=== PATIENT | male | born 1945 | race Caucasian/White ===

== ENCOUNTER 2017-10-28 12:18 | Emergency (ER) | payer OTHER ==
[2017-10-28 12:20] VITALS: BP 188/90; PULSE 63; RESP 12; TEMP 97.6; O2SAT 97
[2017-10-28 13:16] LABS: AUTOMATED NEUTROPHIL # 5.3 TH/MM3 (1.8-7.7); BASOPHIL % 0.4 % (0.0-2.0); EOSINOPHIL # 0.1 TH/MM3 (0-0.4); EOSINOPHIL % 1.1 % (0.0-4.0); HEMATOCRIT 37.8 % (39.0-51.0); HEMO FLAGS DIFF FINAL; LYMPH % 20.7 % (9.0-44.0); LYMPHOCYTE # 1.5 TH/MM3 (1.0-4.8); MEAN CORPUSCULAR HEMOGLOBIN 29.7 PG (27.0-34.0); MEAN CORPUSCULAR HGB CONC 34.1 % (32.0-36.0); MONO % 5.7 % (0.0-8.0); NEUT % 72.1 % (16.0-70.0); PLATELET COUNT 318 TH/MM3 (150-450); RED BLOOD COUNT 4.34 MIL/MM3 (4.50-5.90); RED CELL DISTRIBUTION WIDTH 12.7 % (11.6-17.2); WHITE BLOOD COUNT 7.4 TH/MM3 (4.0-11.0)
[2017-10-28 13:22] LABS: APTT (PATIENT) 26.6 SEC (24.3-30.1); PROTHROMBIN TIME - PATIENT 10.5 SEC (9.8-11.6)
--- NOTE | 2017-10-28 13:26 | PD ---
HPI Chief Complaint: Complaint Time Seen by Provider: 13:03 Travel History International Travel<30 days: No Contact w/Intl Traveler<30days: No Traveled to known affect area: No History of Present Illness HPI Patient is a 72-year-old male who presents to emergency room with complaints of hematuria. Patient reports that he has history of BPH, reports that he is unable to fully empty his bladder. Patient did go to the [place] today and a Rdz catheter was placed this morning. Patient reports that when he went home he noticed blood-tinged urine. Patient reports that he had to see his Rdz catheter bag multiple times due to the blood-tinged urine. Reports that he currently is not on any anticoagulants. Patient denies any abdominal pain, denies any nausea or vomiting or diarrhea. Patient concerned as he has never had hematuria in the past. Patient does follow-up with the urologist and does have an appointment next week with his urologist. PFSH Past Medical History Arthritis: Yes Autoimmune Disease: No Blood Disorders: No Cancer: No Cardiovascular Problems: No Genitourinary: No Neurologic: No Psychiatric: No Respiratory: No Past Surgical History Abdominal Surgery: No Cardiac Surgery: No Ear Surgery: No Endocrine Surgery: No Eye Surgery: No Genitourinary Surgery: No Gynecologic Surgery: No Oral Surgery: No Pacemaker: No Thoracic Surgery: No Social History Alcohol Use: No Tobacco Use: Yes Substance Use: No Allergies-Medications (Allergen,Severity, Reaction): Coded Allergies: No Known Allergies (Verified Allergy, Unknown, 10/28/17) Reported Meds & Prescriptions Reported Meds & Active Scripts Active Macrobid (Nitrofurantoin Monoh/Nitrofur Macro) 100 Mg Cap 100 Mg PO BID 10 Days Reported Lantus Inj (Insulin Glargine) 1,000 Unit/10 Ml Vial 17 Units SQ HS Lantus Inj (Insulin Glargine) 1,000 Unit/10 Ml Vial 5 Units SQ DAILYAC Novolog Flexpen Inj (Insulin Aspart) 300 Unit/3 Ml Pen 5 Units SQ TIDAC Review of Systems General / Constitutional: No: Fever Eyes: No: Visual changes HENT: No: Headaches Cardiovascular: No: Chest Pain or Discomfort Respiratory: No: Shortness of Breath Gastrointestinal: No: Nausea, Vomiting, Diarrhea, Abdominal Pain Genitourinary: Positive: Hematuria, No: Urgency, Frequency, Dysuria Musculoskeletal: No: Pain Skin: No Rash Neurologic: No: Weakness Psychiatric: No: Depression Endocrine: No: Polydipsia Hematologic/Lymphatic: No: Easy Bruising Physical Exam Narrative GENERAL: NAD SKIN: Focused skin assessment warm/dry. HEAD: Atraumatic. Normocephalic. EYES: Pupils equal and round. No scleral icterus. No injection or drainage. ENT: No nasal bleeding or discharge. Mucous membranes pink and moist. NECK: Trachea midline. No JVD. CARDIOVASCULAR: Regular rate and rhythm. No murmur appreciated. RESPIRATORY: No accessory muscle use. Clear to auscultation. Breath sounds equal bilaterally. GASTROINTESTINAL: Abdomen soft, non-tender, nondistended. Hepatic and splenic margins not palpable. LEG bag with blood tinged urine with a few clots MUSCULOSKELETAL: No obvious deformities. No clubbing. No cyanosis. No edema. NEUROLOGICAL: Awake and alert. No obvious cranial nerve deficits. Motor grossly within normal limits. Normal speech. PSYCHIATRIC: Appropriate mood and affect; insight and judgment normal. Data Data Last Documented VS Vital Signs Date Time Temp Pulse Resp B/P (MAP) Pulse Ox O2 Delivery O2 Flow Rate FiO2 10/28/17 12:20 97.6 63 12 188/90 (122) 97 Orders Orders Urinalysis - C+S If Indicated (10/28/17 12:36) Complete Blood Count With Diff (10/28/17 12:45) Basic Metabolic Panel (Bmp) (10/28/17 12:45) Act Partial Throm Time (Ptt) (10/28/17 12:45) Prothrombin Time / Inr (Pt) (10/28/17 12:45) Bladder/Catheter Irrigation (10/28/17 13:14) Urine Culture (10/28/17 12:45) Ceftriaxone Inj (Rocephin Inj) (10/28/17 14:30) Ed Discharge Order (10/28/17 15:03) Lidocaine 1% Inj (50 Ml) (Xylocaine 1% I (10/28/17 15:15) Ceftriaxone Inj (Rocephin Inj) (10/28/17 15:15) Labs Laboratory Tests Test 10/28/17 12:45 10/28/17 12:55 Urine Color RED Urine Turbidity HAZY Urine pH 7.0 Urine Specific [place] 1.015 Urine Protein 100 mg/dL Urine Glucose (UA) 1000 mg/dL Urine Ketones NEG mg/dL Urine Occult Blood LARGE Urine Nitrite NEG Urine Bilirubin NEG Urine Urobilinogen LESS THAN 2.0 MG/DL Urine Leukocyte Esterase TRACE Urine RBC /hpf Urine WBC 14 /hpf Urine Squamous Epithelial Cells 3 /hpf Microscopic Urinalysis Comment CATH-CULTURE IND White Blood Count 7.4 TH/MM3 Red Blood Count 4.34 MIL/MM3 Hemoglobin 12.9 GM/DL Hematocrit 37.8 % Mean Corpuscular Volume 87.0 FL Mean Corpuscular Hemoglobin 29.7 PG Mean Corpuscular Hemoglobin Concent 34.1 % Red Cell Distribution Width 12.7 % Platelet Count 318 TH/MM3 Mean Platelet Volume 8.7 FL Neutrophils (%) (Auto) 72.1 % Lymphocytes (%) (Auto) 20.7 % Monocytes (%) (Auto) 5.7 % Eosinophils (%) (Auto) 1.1 % Basophils (%) (Auto) 0.4 % Neutrophils # (Auto) 5.3 TH/MM3 Lymphocytes # (Auto) 1.5 TH/MM3 Monocytes # (Auto) 0.4 TH/MM3 Eosinophils # (Auto) 0.1 TH/MM3 Basophils # (Auto) 0.0 TH/MM3 CBC Comment DIFF FINAL Differential Comment Prothrombin Time 10.5 SEC Prothromb Time International Ratio 1.0 RATIO Activated Partial Thromboplast Time 26.6 SEC Blood Urea Nitrogen 31 MG/DL Creatinine 1.60 MG/DL Random Glucose 343 MG/DL Calcium Level 9.5 MG/DL Sodium Level 138 MEQ/L Potassium Level 5.0 MEQ/L Chloride Level 105 MEQ/L Carbon Dioxide Level 29.6 MEQ/L Anion Gap 3 MEQ/L Estimat Glomerular Filtration Rate 43 ML/MIN [facility] Medical Decision Making Medical Screen Exam Complete: Yes Emergency Medical Condition: Yes Medical Record Reviewed: Yes Interpretation(s) Vital Signs Date Time Temp Pulse Resp B/P (MAP) Pulse Ox O2 Delivery O2 Flow Rate FiO2 10/28/17 12:20 97.6 63 12 188/90 (122 97 Differential Diagnosis Cystitis, bladder cancer, anemia, electrolyte abnormality Narrative Course During the course of the patients emergency department visit, the patients history, examination, and differential diagnosis were reviewed with the patient. The patient was placed on a social secretary with oximetry and frequent blood pressure monitoring. The patients laboratory studies were reviewed and remarkable for: Laboratory Tests Test 10/28/17 12:45 10/28/17 12:55 Urine Color RED (YELLW/STRAW) Urine Turbidity HAZY (CLEAR) Urine pH 7.0 (5.0-8.5) Urine Specific [place] 1.015 (1.002-1.035) Urine Protein 100 mg/dL (NEG-TRACE) Urine Glucose (UA) 1000 mg/dL (NEG) Urine Ketones NEG mg/dL (NEG) Urine Occult Blood LARGE (NEG) Urine Nitrite NEG (NEG) Urine Bilirubin NEG (NEG) Urine Urobilinogen LESS THAN 2.0 MG/DL (LESS Urine Leukocyte Esterase TRACE (NEG) Urine RBC /hpf (0-3) Urine WBC 14 /hpf (0-5) Urine Squamous Epithelial Cells 3 /hpf (0-5) Microscopic Urinalysis Comment CATH-CULTURE IND White Blood Count 7.4 TH/MM3 (4.0-11.0) Red Blood Count 4.34 MIL/MM3 (4.50-5.90) Hemoglobin 12.9 GM/DL (13.0-17.0) Hematocrit 37.8 % (39.0-51.0) Mean Corpuscular Volume 87.0 FL (80.0-100.0) Mean Corpuscular Hemoglobin 29.7 PG (27.0-34.0) Mean Corpuscular Hemoglobin Concent 34.1 % (32.0-36.0) Red Cell Distribution Width 12.7 % (11.6-17.2) Platelet Count 318 TH/MM3 (150-450) Mean Platelet Volume 8.7 FL (7.0-11.0) Neutrophils (%) (Auto) 72.1 % (16.0-70.0) Lymphocytes (%) (Auto) 20.7 % (9.0-44.0) Monocytes (%) (Auto) 5.7 % (0.0-8.0) Eosinophils (%) (Auto) 1.1 % (0.0-4.0) Basophils (%) (Auto) 0.4 % (0.0-2.0) Neutrophils # (Auto) 5.3 TH/MM3 (1.8-7.7) Lymphocytes # (Auto) 1.5 TH/MM3 (1.0-4.8) Monocytes # (Auto) 0.4 TH/MM3 (0-0.9) Eosinophils # (Auto) 0.1 TH/MM3 (0-0.4) Basophils # (Auto) 0.0 TH/MM3 (0-0.2) CBC Comment DIFF FINAL Differential Comment Prothrombin Time 10.5 SEC (9.8-11.6) Prothromb Time International Ratio 1.0 RATIO Activated Partial Thromboplast Time 26.6 SEC (24.3-30.1) Blood Urea Nitrogen 31 MG/DL (7-18) Creatinine 1.60 MG/DL (0.60-1.30) Random Glucose 343 MG/DL (74-106) Calcium Level 9.5 MG/DL (8.5-10.1) Sodium Level 138 MEQ/L (136-145) Potassium Level 5.0 MEQ/L (3.5-5.1) Chloride Level 105 MEQ/L (98-107) Carbon Dioxide Level 29.6 MEQ/L (21.0-32.0) Anion Gap 3 MEQ/L (5-15) Estimat Glomerular Filtration Rate 43 ML/MIN (>89) Patient understands need to follow-up with urologist for his hematuria as bladder cancer is a diagnosis that will need to be considered with his hematuria. Rdz catheter was irrigated until clear HBG 12.9 Cr 1.6 glucose 343 ua positive for trace leuk esterase, 14wbc, large blood UC sent, patient was given a dose of IM rocephin for tx of uti, he will follow up with urologist and will return to ER as needed. Understands that his urologist will need to perform further workup for his hemataturia Diagnosis Primary Impression: UTI (urinary tract infection) Qualified Codes: N30.01 - Acute cystitis with hematuria Additional Impressions: Hematuria Qualified Codes: R31.9 - Hematuria, unspecified Hyperglycemia Renal insufficiency Patient Instructions: General Instructions Additional Instructions: Please provide patient with a copy of their lab work and studies at discharge* * Please follow up with your primary care doctor in 2-3 days Return to the ER if symptoms worsen or progress Return to the ER as needed Please follow-up with urologist as scheduled, please inform your urologist of your symptoms from today as you will need further workup of your symptoms Please monitor your blood sugar as it was elevated today Med/Other Pt SpecificInfo: Prescription(s) given Scripts Nitrofurantoin Monohydrate Macrocrystals (Macrobid) 100 Mg Cap 100 MG PO BID for Infection for 10 Days, #20 CAP 0 Refills Prov: Jerilyn Jacobs DO 10/28/17 Disposition: 01 DISCHARGE HOME Condition: Stable Jerilyn Jacobs DO Oct 28, 2017 13:26
[2017-10-28] MEDS ORDERED: NOVOINJ3 SQ (13:30)
[2017-10-28] MEDS ORDERED: LANTUS2P SQ ×2 (13:30)
[2017-10-28 13:34] LABS: BICARBONATE 29.6 MEQ/L (21.0-32.0)
[2017-10-28 14:06] LABS: BLOOD, URINE LARGE (NEG); GLUCOSE,URINE 1000 mg/dL (NEG); KETONE, URINE NEG (NEG); NITRITE,URINE NEG (NEG); SQUAMOUS EPITHELIAL CELL URINE 3 /hpf (0-5)
[2017-10-28 14:07] LABS: COMMENT (UR) CATH-CULTURE IND; CULTURE IF INDICATED CATH CULTURE IND; URINE COLOR RED (YELLW/STRAW)
[2017-10-28] MEDS ORDERED: cefTRIAXone INJ 1,000 MG in SODIUM CHLORIDE 0.9% INJ 100 ML IV ONE (14:30)
[2017-10-28] MEDS ORDERED: MACR100C2 PO (14:59)
[2017-10-28] MEDS ORDERED: LIDOCAINE HCL 1% 50 ML VIAL IM ONE (15:15)
[2017-10-28 16:20] VITALS: BP 165/81
== END 2017-10-28 16:25 | disposition home or self-care (01) ==
LOC: NEPD 12:18
DX: N30.01 Acute cystitis with hematuria (principal); R31.9 Hematuria, unspecified; R73.9 Hyperglycemia, unspecified; N28.9 Disorder of kidney and ureter, unspecified
CPT/HCPCS: 51700; 80048; 81001; 85025; 85610; 85730; 87086; 96372; 99284; J0696

== ENCOUNTER 2018-02-13 12:36 | Inpatient (IN) | payer OTHER, MEDICARE ==
[~2018-02-13] VITALS: Ht 165.1 cm; Wt 47.7 kg
[~2018-02-13 12:36] MED LIST: LANTUS2P SQ; MACR100C2 PO; NOVOINJ3 SQ
[2018-02-13 12:40] VITALS: BP 136/61; PULSE 89; RESP 24; TEMP 97.5; O2SAT 100
[2018-02-13] MEDS ORDERED: SODIUM CHLORIDE 0.9% FLUSH 10 ML FLUSH IVF PRN (12:45)
--- NOTE | 2018-02-13 12:46 | PD ---
HPI Chief Complaint: sob Time Seen by Provider: 12:44 Travel History International Travel<30 days: No Contact w/Intl Traveler<30days: No Traveled to known affect area: No History of Present Illness HPI Patient comes in complaining of generalized weakness, associated with nausea and vomiting, over the past 2 days denies any chest pain or headache. However the patient states that he has had these symptoms before whenever he encountered diabetic ketoacidosis. Patient also states that he has had a runny nose cough dry but without apparent fever, diarrhea, rash, headache, chest pain , back pain, abdominal pain. No known drug allergy Past medical history significant for appendectomy, right knee surgery, diabetes , arthritis. PFSH Past Medical History Arthritis: Yes Autoimmune Disease: No Blood Disorders: No Cancer: No Cardiovascular Problems: No Diabetes: Yes Diminished Hearing: No Genitourinary: No Neurologic: No Psychiatric: No Respiratory: No Past Surgical History Abdominal Surgery: No Appendectomy: Yes Cardiac Surgery: No Ear Surgery: No Endocrine Surgery: No Eye Surgery: No Genitourinary Surgery: No Gynecologic Surgery: No Oral Surgery: No Pacemaker: No Thoracic Surgery: No Social History Alcohol Use: No Tobacco Use: No Substance Use: No Allergies-Medications (Allergen,Severity, Reaction): Coded Allergies: No Known Allergies (Verified Allergy, Unknown, 02/13/18) Reported Meds & Prescriptions Reported Meds & Active Scripts Active Macrobid (Nitrofurantoin Monoh/Nitrofur Macro) 100 Mg Cap 100 Mg PO BID 10 Days Reported Lantus Inj (Insulin Glargine) 1,000 Unit/10 Ml Vial 17 Units SQ HS Lantus Inj (Insulin Glargine) 1,000 Unit/10 Ml Vial 5 Units SQ DAILYAC Novolog Flexpen Inj (Insulin Aspart) 300 Unit/3 Ml Pen 5 Units SQ TIDAC Review of Systems General / Constitutional: No: Fever Eyes: No: Visual changes HENT: No: Headaches Cardiovascular: No: Chest Pain or Discomfort Respiratory: Positive: Cough, Shortness of Breath Gastrointestinal: No: Abdominal Pain Genitourinary: No: Dysuria Musculoskeletal: No: Pain Skin: No Rash Neurologic: No: Weakness Psychiatric: No: Depression Endocrine: No: Polydipsia Hematologic/Lymphatic: No: Easy Bruising Physical Exam Narrative GENERAL: SKIN: Warm and dry. Skin tenting HEAD: Atraumatic. Normocephalic. EYES: Pupils equal and round. No scleral icterus. No injection or drainage. ENT: No nasal bleeding or discharge. Mucous membranes pink but dry NECK: Trachea midline. No JVD. CARDIOVASCULAR: Tachycardic but regular rate and rhythm. RESPIRATORY: No accessory muscle use. Clear to auscultation. Breath sounds equal bilaterally. Tachypneic GASTROINTESTINAL: Abdomen soft, non-tender, nondistended. MUSCULOSKELETAL: Extremities without clubbing, cyanosis, or edema. No obvious deformities. NEUROLOGICAL: Awake and alert. No obvious cranial nerve deficits. Motor grossly within normal limits. Five out of 5 muscle strength in the arms and legs. Normal speech. PSYCHIATRIC: Appropriate mood and affect; insight and judgment normal. Data Data Last Documented VS Vital Signs Date Time Temp Pulse Resp B/P (MAP) Pulse Ox O2 Delivery O2 Flow Rate FiO2 02/13/18 13:15 24 100 Room Air 02/13/18 12:40 97.5 89 136/61 (86) Orders Orders Complete Blood Count With Diff (02/13/18 12:44) Comprehensive Metabolic Panel (02/13/18 12:44) B-Type Natriuretic Peptide (02/13/18 12:44) Act Partial Throm Time (Ptt) (02/13/18 12:44) Prothrombin Time / Inr (Pt) (02/13/18 12:44) Ckmb (Isoenzyme) Profile (02/13/18 12:44) Troponin I (02/13/18 12:44) Urinalysis - C+S If Indicated (02/13/18 12:44) Influenzae A/B Antigen (02/13/18 12:44) Blood Culture (02/13/18 12:44) Iv Access Insert/Monitor (02/13/18 12:44) Electrocardiogram (02/13/18 12:44) Ecg Monitoring (02/13/18 12:44) Oximetry (02/13/18 12:44) Oxygen Administration (02/13/18 12:44) Chest, Single Ap (02/13/18 12:44) Sodium Chloride 0.9% Flush (Ns Flush) (02/13/18 12:45) Sodium Chlor 0.9% 1000 Ml Inj (Ns 1000 M (02/13/18 14:45) Insulin Human Regular Inj (Novolin R Inj (02/13/18 14:45) Arterial Blood Gas (Abg) (02/13/18 14:38) Diet Npo (02/13/18 Dinner) Beta Hydroxybutyrate (Acetone) (02/13/18 15:11) Sodium Chlor 0.9% 1000 Ml Inj (Ns 1000 M (02/13/18 15:11) Dext 5%-Nacl 0.9% 1000 Ml Inj (D5w-Ns 10 (02/13/18 15:11) Sodium Bicarbonate 8.4% Inj (Sodium Bica (02/13/18 15:15) Admit To Inpatient (02/13/18 ) It Disaster Recovery Manager / Telemetry GRANT.Q8H (02/13/18 15:25) ^ Insert Iv (02/13/18 15:25) ^ Teach Patient (02/13/18 15:25) Bedside Glucose GRANT.Q1H (02/13/18 15:25) Sodium Chlor 0.9% 1000 Ml Inj (Ns 1000 M (02/13/18 15:25) Dext 5%-Nacl 0.9% 1000 Ml Inj (D5w-Ns 10 (02/13/18 15:25) Insulin Regular (Iv Infusion) (Novolin R (02/13/18 15:30) Potassium Chlor 40 Meq Premix (Kcl 40 Me (02/13/18 15:30) Potassium Chlor 40 Meq Premix (Kcl 40 Me (02/13/18 15:30) Potassium Chlor 20 Meq Premix (Kcl 20 Me (02/13/18 15:30) Potassium Chlor 20 Meq Premix (Kcl 20 Me (02/13/18 15:30) Potassium Chlor 20 Meq Premix (Kcl 20 Me (02/13/18 15:30) Potassium Chlor 20 Meq Premix (Kcl 20 Me (02/13/18 15:30) Potassium Chlor 20 Meq Premix (Kcl 20 Me (02/13/18 15:30) Potassium Chlor 20 Meq Premix (Kcl 20 Me (02/13/18 15:30) Sodium Bicarbonate 8.4% Inj (Sodium Bica (02/13/18 15:30) Sodium Bicarbonate 8.4% Inj (Sodium Bica (02/13/18 15:30) Sodium Phosphate Inj (Sodium Phosphate I (02/13/18 15:30) Basic Metabolic Panel (Bmp) (02/13/18 20:25) Basic Metabolic Panel (Bmp) (02/14/18 02:25) Basic Metabolic Panel (Bmp) (02/14/18 08:25) Basic Metabolic Panel (Bmp) (02/14/18 14:25) Magnesium (Mg) (02/13/18 20:25) Magnesium (Mg) (02/14/18 02:25) Magnesium (Mg) (02/14/18 08:25) Magnesium (Mg) (02/14/18 14:25) Phosphorus (Po4) (02/13/18 20:25) Phosphorus (Po4) (02/14/18 02:25) Phosphorus (Po4) (02/14/18 08:25) Phosphorus (Po4) (02/14/18 14:25) Beta Hydroxybutyrate (Acetone) (02/14/18 02:25) Beta Hydroxybutyrate (Acetone) (02/14/18 14:25) ^ Initiate Protocol (02/13/18 15:25) Instruction (02/13/18 15:25) [facility] (02/13/18 15[facility]30) Chlorhexidine 2% Cloth (Chlorhexidine 2% (02/14/18 04:00) Chlorhexidine 2% Cloth (Chlorhexidine 2% (02/13/18 15:30) Mrsa Pcr Surveillance (02/13/18 15:25) Inpatient Certification (02/13/18 ) Urinary Catheter Insert/Apply (02/13/18 15:27) Admit Order (Ed Use Only) (02/13/18 15:27) Cbc No Diff, Includes Plts (02/14/18 05:00) Cbc No Diff, Includes Plts (02/15/18 05:00) Cbc No Diff, Includes Plts (02/16/18 05:00) Cbc No Diff, Includes Plts (02/17/18 05:00) Cbc No Diff, Includes Plts (02/18/18 05:00) Cbc No Diff, Includes Plts (02/19/18 05:00) Cbc No Diff, Includes Plts (02/20/18 05:00) Basic Metabolic Panel (Bmp) (02/14/18 05:00) Basic Metabolic Panel (Bmp) (02/15/18 05:00) Basic Metabolic Panel (Bmp) (02/16/18 05:00) Basic Metabolic Panel (Bmp) (02/17/18 05:00) Basic Metabolic Panel (Bmp) (02/18/18 05:00) Basic Metabolic Panel (Bmp) (02/19/18 05:00) Basic Metabolic Panel (Bmp) (02/20/18 05:00) Resp Ezpap/Pep Therapy (02/13/18 15:27) Resp Acapella/Pep/Chest Vibra (02/13/18 15:27) Resp Incentive Spirometry (02/13/18 15:27) Vital Signs (Adult) GRANT.Q1H (02/13/18 15:27) Activity Bed Rest (02/13/18 15:27) Elevate Head Of Bed (02/13/18 15:27) Neuro Checks . ORDERED (02/13/18 15:27) Ondansetron Inj (Zofran Inj) (02/13/18 15:30) Albuterol-Ipratropium Neb (Duoneb Neb) (02/13/18 15:30) It Disaster Recovery Manager / Telemetry GRANT.Q8H (02/13/18 15:27) Heparin Inj (Heparin Inj) (02/13/18 17:00) Scd Bilateral/Knee High GRANT.BID (02/13/18 15:27) Urine Culture (02/13/18 14:20) Labs Laboratory Tests Test 02/13/18 13:00 02/13/18 14:20 02/13/18 14:46 White Blood Count 14.7 TH/MM3 Red Blood Count 3.84 MIL/MM3 Hemoglobin 11.9 GM/DL Hematocrit 38.5 % Mean Corpuscular Volume 100.2 FL Mean Corpuscular Hemoglobin 31.1 PG Mean Corpuscular Hemoglobin Concent 31.0 % Red Cell Distribution Width 15.1 % Platelet Count 366 TH/MM3 Mean Platelet Volume 10.0 FL Neutrophils (%) (Auto) 87.6 % Lymphocytes (%) (Auto) 4.5 % Monocytes (%) (Auto) 7.4 % Eosinophils (%) (Auto) 0.1 % Basophils (%) (Auto) 0.4 % Neutrophils # (Auto) 12.9 TH/MM3 Lymphocytes # (Auto) 0.7 TH/MM3 Monocytes # (Auto) 1.1 TH/MM3 Eosinophils # (Auto) 0.0 TH/MM3 Basophils # (Auto) 0.1 TH/MM3 CBC Comment AUTO DIFF Differential Total Cells Counted 100 Neutrophils % (Manual) 76 % Band Neutrophils % 8 % Lymphocytes % 5 % Monocytes % 6 % Neutrophils # (Manual) 13.1 TH/MM3 Metamyelocytes 5 % Differential Comment FINAL DIFF MANUAL Platelet Estimate NORMAL Platelet Morphology Comment NORMAL Red Cell Morphology Comment NORMAL Prothrombin Time 10.1 SEC Prothromb Time International Ratio 1.0 RATIO Activated Partial Thromboplast Time 21.0 SEC Blood Urea Nitrogen 45 MG/DL Creatinine 2.30 MG/DL Random Glucose 863 MG/DL Total Protein 7.2 GM/DL Albumin 3.3 GM/DL Calcium Level 8.8 MG/DL Alkaline Phosphatase 94 U/L Aspartate Amino Transf (AST/SGOT) 6 U/L Alanine Aminotransferase (ALT/SGPT) 19 U/L Total Bilirubin 0.3 MG/DL Sodium Level 134 MEQ/L Potassium Level 7.0 MEQ/L Chloride Level 100 MEQ/L Carbon Dioxide Level 5.2 MEQ/L Anion Gap 29 MEQ/L Estimat Glomerular Filtration Rate 28 ML/MIN Total Creatine Kinase 51 U/L Troponin I 0.02 NG/ML B-Type Natriuretic Peptide 159 PG/ML B-Hydroxybutyrate 13.32 MMOL/L Urine Color YELLOW Urine Turbidity HAZY Urine pH 5.0 Urine Specific [place] 1.019 Urine Protein 30 mg/dL Urine Glucose (UA) 1000 mg/dL Urine Ketones 80 mg/dL Urine Occult Blood LARGE Urine Nitrite NEG Urine Bilirubin NEG Urine Urobilinogen LESS THAN 2.0 MG/DL Urine Leukocyte Esterase SMALL Urine RBC 43 /hpf Urine WBC 23 /hpf Urine Squamous Epithelial Cells 1 /hpf Urine Bacteria RARE /hpf Urine Hyaline Casts 8 /lpf Urine Mucus FEW /lpf Microscopic Urinalysis Comment CULTURE INDICATED Blood Gas Puncture Site RT RADIAL Blood Gas Patient Temperature 98.6 Blood Gas HCO3 3 mmol/L Blood Gas Base Excess -27.4 mmol/L Blood Gas Oxygen Saturation 95 % Arterial Blood pH 6.91 Arterial Blood Partial Pressure CO2 15 mmHg Arterial Blood Partial Pressure O2 131 mmHG Arterial Blood Oxygen Content 15.6 Vol % Arterial Blood Carboxyhemoglobin 1.3 % Arterial Blood Methemoglobin 1.1 % Blood Gas Hemoglobin 11.6 G/DL Blood Gas Inspired Oxygen 21 % [facility] Medical Decision Making Medical Screen Exam Complete: Yes Emergency Medical Condition: Yes Medical Record Reviewed: Yes Interpretation(s) EKG shows multifocal atrial tachycardia with about 103 bpm, no ST elevation IN pattern noted. Multiple different shapes of P waves Differential Diagnosis Non-STEMI versus STEMI versus pneumonia versus pleural effusion versus pneumothorax Narrative Course CBC shows a leukocytosis of 14.7 with left shift of 87.6% neutrophilia, normal platelet count, normal H&H of 11.9/38.5 Coagulation profile is within normal limits ABG shows pH 6.91 PCO2 of 15 PaO2 131 base excess of -27 bicarb of 3 on room air Chemistry shows a potassium of 7 carbon dioxide of 5.2 anion gap of 29 BUN of 45 creatinine of 2.3 estimated GFR of 28 glucose of 863 normal liver functions negative cardiac enzymes, normal beta natruretic peptide Critical Care Narrative CRITICAL CARE NOTE: With evaluation of the patient, labs, EKG, receipt of radiologic studies, administration of medications, reevaluation the patient and discussion of the patient with the admitting physicians, the total critical care time was [60] minutes. Time to perform other separately billable procedures was not included in the critical care time. Diagnosis Primary Impression: DKA Additional Impressions: Hyperkalemia Acute renal failure Anion gap acidosis Admitting Information Admitting Physician Requests: Admit Marcos Grullon MD Feb 13, 2018 12:46
--- NOTE | 2018-02-13 13:14 | RADRPT ---
EXAM DATE/TIME: 02/13/2018 12:56 [place] COMPARISON: No previous studies available for comparison. INDICATIONS : Shortness of breath. MEDICAL HISTORY : None. SURGICAL HISTORY : None. ENCOUNTER: Initial ACUITY: 2 days PAIN SCORE: 0/10 LOCATION: Bilateral chest FINDINGS: A single view of the chest demonstrates the lungs to be symmetrically aerated without evidence of mas s, infiltrate or effusion. The cardiomediastinal contours are unremarkable. Osseous structures are intact. The patient is status post lower cervical fusion with screw-plate fixation device. There over lying electrocardiogram leads. CONCLUSION: No acute disease. Channing Haskins MD on February 13, 2018 at 13:12 Board Certified Radiologist. This report was verified electronically.
[2018-02-13 13:15] VITALS: RESP 24; O2SAT 100
[2018-02-13 13:34] LABS: AUTOMATED NEUTROPHIL # 12.9 TH/MM3 (1.8-7.7); BASOPHIL # 0.1 TH/MM3 (0-0.2); BASOPHIL % 0.4 % (0.0-2.0); EOSINOPHIL % 0.1 % (0.0-4.0); HEMATOCRIT 38.5 % (39.0-51.0); HEMOGLOBIN 11.9 GM/DL (13.0-17.0); LYMPH % 4.5 % (9.0-44.0); LYMPHOCYTE # 0.7 TH/MM3 (1.0-4.8); MEAN CELL VOLUME 100.2 FL (80.0-100.0); MEAN CORPUSCULAR HEMOGLOBIN 31.1 PG (27.0-34.0); MONO % 7.4 % (0.0-8.0); MONOCYTE # 1.1 TH/MM3 (0-0.9); NEUT % 87.6 % (16.0-70.0); PLATELET COUNT 366 TH/MM3 (150-450); RED BLOOD COUNT 3.84 MIL/MM3 (4.50-5.90); RED CELL DISTRIBUTION WIDTH 15.1 % (11.6-17.2); WHITE BLOOD COUNT 14.7 TH/MM3 (4.0-11.0)
[2018-02-13 13:40] LABS: PROTHROMBIN TIME - PATIENT 10.1 SEC (9.8-11.6)
[2018-02-13 14:17] LABS: BANDS 8 % (0-6); LYMPHOCYTES 5 % (9-44); METAMYELOCYTES 5 % (0-1); MONOCYTES 6 % (0-8); NEUTROPHIL # MANUAL DIFF 13.1 TH/MM3 (1.8-7.7); POLYS (SEG NEUTROPHILS) 76 % (16-70)
[2018-02-13 14:18] LABS: ALBUMIN 3.3 GM/DL (3.4-5.0); ALKALINE PHOSPHATASE 94 U/L (45-117); ALT (GPT) 19 U/L (12-78); AST (GOT) 6 U/L (15-37); BICARBONATE 5.2 MEQ/L (21.0-32.0); BLOOD UREA NITROGEN 45 MG/DL (7-18); CALCIUM 8.8 MG/DL (8.5-10.1); CHLORIDE 100 MEQ/L (98-107); GLOMERULAR FILTRATION RATE 28 ML/MIN (>89); SODIUM (NA) 134 MEQ/L (136-145); TOTAL BILIRUBIN ADULT 0.3 MG/DL (0.2-1.0); TOTAL PROTEIN 7.2 GM/DL (6.4-8.2); TROPONIN I 0.02 NG/ML (0.02-0.05)
[2018-02-13 14:36] LABS: GLUCOSE,RANDOM 863 MG/DL (74-106)
[2018-02-13 14:44] LABS: BACTERIA, URINE RARE /hpf; BILIRUBIN, URINE NEG (NEG); BLOOD, URINE LARGE (NEG); GLUCOSE,URINE 1000 mg/dL (NEG); HYALINE CAST, URINE 8 /lpf (RARE); KETONE, URINE 80 mg/dL (NEG); MUCUS URINE FEW /lpf (OCC); NITRITE,URINE NEG (NEG); SQUAMOUS EPITHELIAL CELL URINE 1 /hpf (0-5); URINE COLOR YELLOW (YELLW/STRAW); URINE LEUKOCYTE ESTERASE SMALL (NEG)
[2018-02-13] MEDS ORDERED: SODIUM CHLOR 0.9% 1000 ML INJ 1,000 ML IV ONE (14:45)
[2018-02-13] MEDS ORDERED: INSULIN HUMAN REGULAR 1,000 UNITS/10 ML VIAL IV PUSH ONE (14:45)
[2018-02-13] MEDS ORDERED: DEXT 5%-NACL 0.9% 1000 ML INJ 1,000 ML IV SCH (15:11)
[2018-02-13] MEDS ORDERED: SODIUM CHLOR 0.9% 1000 ML INJ 1,000 ML IV SCH (15:11)
[2018-02-13] MEDS ORDERED: INSULIN REGULAR (IV INFUSION) 100 UNITS in SODIUM CHLORIDE 0.9% INJ 99 ML IV PRN ×2 (15:15→15:30)
[2018-02-13] MEDS ORDERED: SODIUM BICARBONATE 8.4% SOLN 50 MEQ/50 ML VIAL IV PUSH PRN ×3 (15:15→15:30)
--- NOTE | 2018-02-13 15:29 | HHI.HP ---
[facility] Service Critical Care Medicine Primary Care Physician [facility] Admission Diagnosis DKA, RENAL FAILURE, HYPERKALEMIA Diagnosis: Chief Complaint: nausea, vomiting Travel History International Travel<30 Days: No Contact w/Intl Traveler <30 Da: No Traveled to Known Affected Are: No History of Present Illness This is a 72-year-old male with a history of insulin dependent diabetes who presented with 2 days of worsening nausea and vomiting. Patient states that last Thursday, 6 days prior to admission, the patient underwent elective prostate surgery at an outpatient surgery center. He said that he was feeling bad and had some nausea 2-3 days ago and he called the surgery center and the nurse at the surgery center told him to hold his insulin, which he did. Since then he has not been able to tolerate any liquids and has had worsening nausea and vomiting and fatigue. Denies chest pain, shortness of breath, fever, chills. Denies any other symptoms. ROS otherwise negative. In the emergency department he was found to be severely hyperglycemic with a glucose greater than 800. He had evidence of ketonuria as well as significant ketoacidosis and laboratory work. He has a pH of 6.9, a bicarb of 5.2, creatinine of 2.3, sodium 134. Review of Systems Constitutional: COMPLAINS OF: Fatigue, DENIES: Diaphoretic episodes, Fever, Chills, Dizziness, Night Sweats Endocrine: COMPLAINS OF: Polyuria, DENIES: Polydipsia Eyes: DENIES: Blurred vision, Diplopia, Photosensitivity Ears, nose, mouth, throat: DENIES: Nasal discharge, Throat pain Respiratory: DENIES: Cough, Wheezing, Hemoptysis, Sputum production, Shortness of breath Cardiovascular: DENIES: Chest pain, Palpitations, Syncope, Dyspnea on Exertion , Lower Extremity Edema, Orthopnea Gastrointestinal: COMPLAINS OF: Nausea, Vomiting, DENIES: Abdominal pain, Black stools, Bloody stools, Constipation, Diarrhea Genitourinary: COMPLAINS OF: Urinary frequency, DENIES: Urinary incontinence, Urgency, Hematuria, Dysuria Musculoskeletal: DENIES: Muscle aches, Back pain Neurologic: DENIES: Headache Psychiatric: DENIES: Confusion Past Family Social History Allergies: Coded Allergies: No Known Allergies (Verified Allergy, Unknown, 02/13/18) Past Medical History Arthritis Diabetes, insulin-dependent Past Surgical History Appendectomy Recent prostate surgery 1 week ago, for unknown indication Reported Medications Macrobid (Nitrofurantoin Monoh/Nitrofur Macro) 100 Mg Cap 100 Mg PO BID 10 Days Lantus Inj (Insulin Glargine) 1,000 Unit/10 Ml Vial 17 Units SQ HS Lantus Inj (Insulin Glargine) 1,000 Unit/10 Ml Vial 5 Units SQ DAILYAC Novolog Flexpen Inj (Insulin Aspart) 300 Unit/3 Ml Pen 5 Units SQ TIDAC Active Ordered Medications See MAR Family History Reviewed and found to be noncontributory to his acute illness Social History Denies tobacco, EtOH, other drugs. Physical Exam Vital Signs Vital Signs Date Time Temp Pulse Resp B/P (MAP) Pulse Ox O2 Delivery O2 Flow Rate FiO2 02/13/18 13:15 24 100 Room Air 02/13/18 12:40 97.5 89 24 136/61 (86) 100 Physical Exam GENERAL: Elderly male, lying in bed, in moderate respiratory distress. Pungent acetone smell in the room. HEENT: Normocephalic. Atraumatic. Pupils equal, round, reactive, conjugate. Mucous membranes are dry NECK: Trachea is midline. There is no JVD. CHEST: Kussmaul breathing. tachypneic. labored. on room air. CARDIOVASCULAR: Tachycardic rate, regular rhythm. Sinus by telemetry. ABDOMEN: Soft, nontender, nondistended. No guarding. MUSCULOSKELETAL: Pulses 2+. No peripheral edema. NEUROLOGICAL: RASS -1. Easily arousable. Follows commands. Moves all extremities. No focal deficits. Laboratory Laboratory Tests Test 02/13/18 13:00 02/13/18 14:20 02/13/18 14:46 White Blood Count 14.7 Red Blood Count 3.84 Hemoglobin 11.9 Hematocrit 38.5 Mean Corpuscular Volume 100.2 Mean Corpuscular Hemoglobin 31.1 Mean Corpuscular Hemoglobin Concent 31.0 Red Cell Distribution Width 15.1 Platelet Count 366 Mean Platelet Volume 10.0 Neutrophils (%) (Auto) 87.6 Lymphocytes (%) (Auto) 4.5 Monocytes (%) (Auto) 7.4 Eosinophils (%) (Auto) 0.1 Basophils (%) (Auto) 0.4 Neutrophils # (Auto) 12.9 Lymphocytes # (Auto) 0.7 Monocytes # (Auto) 1.1 Eosinophils # (Auto) 0.0 Basophils # (Auto) 0.1 CBC Comment AUTO DIFF Differential Total Cells Counted 100 Neutrophils % (Manual) 76 Band Neutrophils % 8 Lymphocytes % 5 Monocytes % 6 Neutrophils # (Manual) 13.1 Metamyelocytes 5 Differential Comment FINAL DIFF MANUAL Platelet Estimate NORMAL Platelet Morphology Comment NORMAL Red Cell Morphology Comment NORMAL Prothrombin Time 10.1 Prothromb Time International Ratio 1.0 Activated Partial Thromboplast Time 21.0 Blood Urea Nitrogen 45 Creatinine 2.30 Random Glucose 863 Total Protein 7.2 Albumin 3.3 Calcium Level 8.8 Alkaline Phosphatase 94 Aspartate Amino Transf (AST/SGOT) 6 Alanine Aminotransferase (ALT/SGPT) 19 Total Bilirubin 0.3 Sodium Level 134 Potassium Level 7.0 Chloride Level 100 Carbon Dioxide Level 5.2 Anion Gap 29 Estimat Glomerular Filtration Rate 28 Total Creatine Kinase 51 Troponin I 0.02 B-Type Natriuretic Peptide 159 Blood Gas Puncture Site RT RADIAL Blood Gas Patient Temperature 98.6 Blood Gas HCO3 3 Blood Gas Base Excess -27.4 Blood Gas Oxygen Saturation 95 Arterial Blood pH 6.91 Arterial Blood Partial Pressure CO2 15 Arterial Blood Partial Pressure O2 131 Arterial Blood Oxygen Content 15.6 Arterial Blood Carboxyhemoglobin 1.3 Arterial Blood Methemoglobin 1.1 Blood Gas Hemoglobin 11.6 Blood Gas Inspired Oxygen 21 Date/Time Source Procedure Growth Status 02/13/18 13:05 Blood Peripheral Aerobic Blood Culture Pending Received 02/13/18 13:05 Blood Peripheral Anaerobic Blood Culture Pending Received 02/13/18 13:00 Nasal Washing Influenza Types A,B Antigen (CHRISSY) - Final NEGATIVE FOR FLU A AND B ANTIGEN.... Complete Result Diagram: 02/13/18 1300 02/13/18 1300 Imaging Last Impressions Chest X-Ray 02/13/18 1244 Signed Impressions: Service Date/Time: Tuesday, February 13, 2018 12:56 - CONCLUSION: No acute disease. Channing Haskins MD Capsravani VTE Risk Assessment Caprini VTE Risk Assessment: Mod/High Risk (score >= 2) Caprini Risk Assessment Model Point Value = 1 Point Value = 2 Point Value = 3 Point Value = 5 Age 41-60 Minor surgery BMI > 25 kg/m2 Swollen legs Varicose veins or History of unexplained or recurrent spontaneous Oral contraceptives or hormone replacement Sepsis (< 1 month) Serious lung disease, including pneumonia (< 1 month) Abnormal pulmonary function Acute myocardial infarction Congestive heart failure (< 1 month) History of inflammatory bowel disease Medical patient at bed rest Age 61-74 Arthroscopic surgery Major open surgery (> 45 min) Laparoscopic surgery (> 45 min) Malignancy Confined to bed (> 72 hours) Immobilizing plaster cast Central venous access Age >= 75 History of VTE Family history of VTE Factor V Leiden Prothrombin [id number] Lupus anticoagulant Anticardiolipin antibodies Elevated serum homocysteine Heparin-induced thrombocytopenia Other congenital or acquired thrombophilia Stroke (< 1 month) Elective arthroplasty Hip, pelvis, or leg fracture Acute spinal cord injury (< 1 month) Prophylaxis Regimen Total Risk Factor Score Risk Level Prophylaxis Regimen 0-1 Low Early ambulation 2 Moderate Order ONE of the following: *Sequential Compression Device (SCD) *Heparin 5000 units SQ BID 3-4 Higher Order ONE of the following medications: *Heparin 5000 units SQ TID *Enoxaparin/Lovenox 40 mg SQ daily (WT < 150 kg, CrCl > 30 mL/min) *Enoxaparin/Lovenox 30 mg SQ daily (WT < 150 kg, CrCl > 10-29 mL/min) *Enoxaparin/Lovenox 30 mg SQ BID (WT < 150 kg, CrCl > 30 mL/min) AND/OR *Sequential Compression Device (SCD) 5 or more Highest Order ONE of the following medications: *Heparin 5000 units SQ TID (Preferred with Epidurals) *Enoxaparin/Lovenox 40 mg SQ daily (WT < 150 kg, CrCl > 30 mL/min) *Enoxaparin/Lovenox 30 mg SQ daily (WT < 150 kg, CrCl > 10-29 mL/min) *Enoxaparin/Lovenox 30 mg SQ BID (WT < 150 kg, CrCl > 30 mL/min) AND *Sequential Compression Device (SCD) Assessment and Plan Assessment and Plan Assessment: 72-year-old male with recent elective prostate surgery who his stopped taking his insulin and presents in severe diabetic ketoacidosis with life-threatening acidosis, pH less than 7, acute kidney injury, severe life- threatening hyperkalemia, pseudohyponatremia, total body potassium stores depletion. Will admit with aggressive IV fluid hydration as well as IV insulin therapy, potassium replacement. Serial labs. Very critically ill and near in extremis. Plan by systems: Neurologic: Frequent neurochecks Avoid long-acting sedatives Respiratory: Respiratory distress Pulmonary toilet Wean oxygen for goal SPO2 greater than 90% Cardiovascular: Sinus tachycardia Secondary to volume depletion Continue telemetry Renal: Acute kidney injury Place Rdz given severe oliguria -- Strict I/Os FEN/GI: Severe diabetic ketoacidosis Severe anion gap metabolic acidosis Severe total body potassium stores depletion Severe life-threatening serum hyperkalemia Pseudohyponatremia secondary to hyperglycemia Severe acute intravascular volume depletion Severe dehydration Acute protein calorie malnutrition-moderate Serial BMP Aggressive electrolyte replacement Additional 1 L normal saline bolus now Continue and is replacement of 200 cc an hour Heme/ID: No infectious etiology suspected this time Daily CBC Endocrine: Severe diabetic ketoacidosis Severe hyperglycemia Insulin drip Frequent Accu-Cheks Prophylaxis: GI Prophylaxis Pepcid DVT Prophylaxis -- SCDs Subcu heparin Lines: Peripheral IVs Rdz Dispo: Admit to ICU. Very critically ill. This patient remains critically ill with one or more organ systems which are or may become a threat to life. I have spent in excess of 39 minutes discontinuously in the care and management of this patient. This time is exclusive of procedures, and includes, but is not limited to, evaluation of the patient, review of the medical record, discussions with family, consultants, nursing staff, or respiratory therapy, and documentation in the medical record. Sven Dow MD Feb 13, 2018 15:29
[2018-02-13] MEDS ORDERED: RESP: ALBUTEROL 2.5 MG/IPRATROPIUM 0.5 MG NEB (PRN) INH (15:30)
[2018-02-13] MEDS ORDERED: MISCELLANEOUS NURSING INFORMATION XX SCH (15:30)
[2018-02-13] MEDS ORDERED: POTASSIUM CHLOR 20 MEQ PREMIX 100 ML IV PRN ×6 (15:30)
[2018-02-13] MEDS ORDERED: CHLORHEXIDINE GLUCONATE 2 % 1 PACK (2 CLOTHS) TOP PRN (15:30)
[2018-02-13] MEDS ORDERED: POTASSIUM CHLOR 40 MEQ PREMIX 100 ML IV PRN ×2 (15:30)
[2018-02-13] MEDS ORDERED: ONDANSETRON HCL 4 MG/2 ML VIAL IV PUSH PRN (15:30)
[2018-02-13] MEDS ORDERED: SODIUM PHOSPHATE INJ 15 MMOL in SODIUM CHLORIDE 0.9% INJ 100 ML IV PRN (15:30)
[2018-02-13] MEDS: DEXT 5%-NACL 0.9% 1000 ML INJ 1,000 ML IV SCH ×2 (15:55→20:25)
[2018-02-13] MEDS: SODIUM CHLOR 0.9% 1000 ML INJ 1,000 ML IV SCH ×3 (15:56→23:14)
[2018-02-13] MEDS: INSULIN REGULAR (IV INFUSION) 100 UNITS in SODIUM CHLORIDE 0.9% INJ 99 ML IV PRN (16:17)
[2018-02-13 16:20] VITALS: BP 127/91; PULSE 99; RESP 24; TEMP 96.3; O2SAT 100
[2018-02-13] MEDS: HEPARIN SODIUM - SQ 10,000 UNITS/ML VIAL SQ SCH (17:00)
[2018-02-13 20:00] VITALS: BP 130/58; PULSE 82; RESP 18; TEMP 98.3; O2SAT 95
[2018-02-13 20:51] LABS: BICARBONATE 9.1 MEQ/L (21.0-32.0); CALCIUM 7.8 MG/DL (8.5-10.1); CREATININE 1.79 MG/DL (0.60-1.30); MAGNESIUM 2.2 MG/DL (1.5-2.5); PHOSPHORUS 1.3 MG/DL (2.5-4.9)
[2018-02-13] MEDS: CHLORHEXIDINE GLUCONATE 2 % 1 PACK (2 CLOTHS) TOP SCH (21:14)
[2018-02-13 22:00] VITALS: PULSE 82
[2018-02-14] VITALS (13 sets, daily range): BP systolic 110–149; BP diastolic 55–71; PULSE 50–77; RESP 12–29; TEMP 98–99; O2SAT 94–98
[2018-02-14] MEDS: DEXT 5%-NACL 0.9% 1000 ML INJ 1,000 ML IV SCH ×6 (00:44→23:13)
[2018-02-14] MEDS: SODIUM CHLOR 0.9% 1000 ML INJ 1,000 ML IV SCH ×7 (02:37→23:14)
[2018-02-14 03:27] LABS: HEMATOCRIT 25.8 % (39.0-51.0); HEMOGLOBIN 9.1 GM/DL (13.0-17.0); MEAN CELL VOLUME 86.7 FL (80.0-100.0); MEAN CORPUSCULAR HEMOGLOBIN 30.5 PG (27.0-34.0); MEAN CORPUSCULAR HGB CONC 35.2 % (32.0-36.0); MEAN PLATELET VOLUME 8.9 FL (7.0-11.0); PLATELET COUNT 221 TH/MM3 (150-450); RED BLOOD COUNT 2.98 MIL/MM3 (4.50-5.90); RED CELL DISTRIBUTION WIDTH 13.7 % (11.6-17.2); WHITE BLOOD COUNT 10.3 TH/MM3 (4.0-11.0)
[2018-02-14 04:04] LABS: BICARBONATE 18.8 MEQ/L (21.0-32.0); CALCIUM 7.6 MG/DL (8.5-10.1); CREATININE 1.41 MG/DL (0.60-1.30); MAGNESIUM 1.9 MG/DL (1.5-2.5); PHOSPHORUS 0.8 MG/DL (2.5-4.9)
[2018-02-14] MEDS: HEPARIN SODIUM - SQ 10,000 UNITS/ML VIAL SQ SCH ×2 (04:21→17:30)
[2018-02-14] MEDS: INSULIN REGULAR (IV INFUSION) 100 UNITS in SODIUM CHLORIDE 0.9% INJ 99 ML IV PRN (04:41)
[2018-02-14 12:23] LABS: BICARBONATE 19.7 MEQ/L (21.0-32.0); CREATININE 0.99 MG/DL (0.60-1.30); MAGNESIUM 1.9 MG/DL (1.5-2.5)
--- NOTE | 2018-02-14 12:24 | EKG ---
Date Performed: 02/13/2018 Time Performed: 12:48:30 PTAGE: 72 years EKG: Wandering atrial pacemaker MODERATE INTRAVENTRICULAR CONDUCTION DELAY ABNORMAL RHYTHM ECG C ompared to PREVIOUS TRACING , rate is faster and wandering atrial pacemaker is now present. PREVIOUS TRACIN04/21/2004 21.17.24 DOCTOR: Lyle Ruvalcaba Interpretating Date/Time 02/14/2018 12:19:56
[2018-02-14] MEDS ORDERED: DEXTROSE 50% IN WATER 50 ML VIAL(D50) IV PUSH PRN (13:45)
[2018-02-14] MEDS ORDERED: DC previous DKA orders (HMC 1917) ONE (13:45)
[2018-02-14] MEDS ORDERED: GLUCAGON 1 MG/ML VIAL OTHER PRN (13:45)
[2018-02-14] MEDS ORDERED: DC Insulin drip 2 hrs post basal insulin dose ONE (13:45)
--- NOTE | 2018-02-14 13:56 | HHI.CCPN ---
Subjective Remarks/Hospital Course This is a 72-year-old male with a history of insulin dependent diabetes who presented with 2 days of worsening nausea and vomiting. Patient states that last Thursday, 6 days prior to admission, the patient underwent elective prostate surgery at an outpatient surgery center. He said that he was feeling bad and had some nausea 2-3 days ago and he called the surgery center and the nurse at the surgery center told him to hold his insulin, which he did. Since then he has not been able to tolerate any liquids and has had worsening nausea and vomiting and fatigue. Denies chest pain, shortness of breath, fever, chills. Denies any other symptoms. ROS otherwise negative. In the emergency department he was found to be severely hyperglycemic with a glucose greater than 800. He had evidence of ketonuria as well as significant ketoacidosis and laboratory work. He has a pH of 6.9, a bicarb of 5.2, creatinine of 2.3, sodium 134. 4/1: Patient remains on DKA protocol blood sugar control improved in the low 200s, anion gap is closed. Patient will be transitioned to Levemir 7 units every 12 with pre-meal NovoLog and sliding scale. Family not to use slurred speech. I will get MRI BRAIN and carotid Dopplers Objective Vital Signs Date Time Temp Pulse Resp B/P (MAP) Pulse Ox O2 Delivery O2 Flow Rate FiO2 02/14/18 12:00 57 02/14/18 04:00 98.0 17 110/55 (73) 98 02/13/18 16:20 Room Air Intake and Output 02/14/18 02/14/18 02/15/18 08:00 16:00 00:00 Intake Total 2000 ml Output Total 2500 ml Balance -500 ml Result Diagram: 02/14/18 0232 02/14/18 1147 Other Results Microbiology Date/Time Source Procedure Growth Status 02/13/18 13:00 Nasal Washing Influenza Types A,B Antigen (CHRISSY) - Final NEGATIVE FOR FLU A AND B ANTIGEN.... Complete 02/13/18 14:20 Urine Random Urine Urine Culture - Final 50-100,000 CFU/ML MIXED GRAM POSITIVE... Complete Laboratory Tests Test 02/13/18 14:46 02/13/18 17:40 Blood Gas Puncture Site RT RADIAL RT RADIAL Blood Gas Patient Temperature 98.6 98.6 Blood Gas HCO3 3 mmol/L (22-26) 4 mmol/L (22-26) Blood Gas Base Excess -27.4 mmol/L (-2-2) -23.8 mmol/L (-2-2) Blood Gas Oxygen Saturation 95 % (90-100) 95 % (90-100) Arterial Blood pH 6.91 (7.380-7.420) 7.10 (7.380-7.420) Arterial Blood Partial Pressure CO2 15 mmHg (38-42) 15 mmHg (38-42) Arterial Blood Partial Pressure O2 131 mmHG (61-120) 127 mmHg (61-120) Arterial Blood Oxygen Content 15.6 Vol % (12.0-20.0) 14.2 Vol % (12.0-20.0) Arterial Blood Carboxyhemoglobin 1.3 % (0-4) 1.1 % (0-4) Arterial Blood Methemoglobin 1.1 % (0-2) 1.7 % (0-2) Blood Gas Hemoglobin 11.6 G/DL (12.0-16.0) 10.5 G/DL (12.0-16.0) Blood Gas Inspired Oxygen 21 % 21 % Oxygen Delivery Device ROOM AIR Imaging Last Impressions Chest X-Ray 02/13/18 1244 Signed Impressions: Service Date/Time: Tuesday, February 13, 2018 12:56 - CONCLUSION: No acute disease. Channing Haskins MD Objective Remarks GENERAL: Elderly male, lying in bed, in NO distress. HEENT: Normocephalic. Atraumatic. Pupils equal, round, reactive, conjugate. Mucous membranes are dry NECK: Trachea is midline. There is no JVD. CHEST: Breathing comfortably air entry equal bilaterally CARDIOVASCULAR: Regular rhythm. Sinus by telemetry. ABDOMEN: Soft, nontender, nondistended. No guarding. MUSCULOSKELETAL: Pulses 2+. No peripheral edema. NEUROLOGICAL: RASS -1. Easily arousable. Follows commands. Moves all extremities. No focal deficits. A/P Assessment and Plan Assessment: 72-year-old male with recent elective prostate surgery who his stopped taking his insulin and presents in severe diabetic ketoacidosis with life-threatening acidosis, pH less than 7, acute kidney injury, severe life- threatening hyperkalemia, pseudohyponatremia, total body potassium stores depletion. Sugar control is adequate -will transition to sliding scale and Levemir long-acting Plan by systems: Neurologic: Slightly altered mental status with slurred speech MRI of the brain and carotid Doppler ordered. Patient is at high risk for micro and macrovascular disease Frequent neurochecks Avoid long-acting sedatives Respiratory: Respiratory insufficiency Pulmonary toilet Wean oxygen for goal SPO2 greater than 90% Cardiovascular: Sinus tachycardia Secondary to volume depletion Continue telemetry Renal: Acute kidney injury-resolved Continue IV hydration per protocol -- Strict I/Os FEN/GI: Severe diabetic ketoacidosis Severe anion gap metabolic acidosis Severe total body potassium stores depletion Severe life-threatening serum hyperkalemia Pseudohyponatremia secondary to hyperglycemia Severe acute intravascular volume depletion Severe dehydration Acute protein calorie malnutrition-moderate Serial BMP Aggressive electrolyte replacement s/p Additional 1 L IVF per DKA protocol Heme/ID: No infectious etiology suspected this time Daily CBC Endocrine: Severe diabetic ketoacidosis Severe hyperglycemia Insulin drip-transition to Levemir 7 units every 12, pre-meal NovoLog 3 units, sliding scale NovoLog Frequent Accu-Cheks Prophylaxis: GI Prophylaxis Pepcid DVT Prophylaxis -- SCDs Subcu heparin Lines: Peripheral IVs Rdz Dispo: Continue ICU. Transfer to [facility] with Tele if blood sugar control adequate after transition. Hospitalist to assume care in Neil Reid MD Feb 14, 2018 13:56
[2018-02-14] MEDS: INSULIN DETEMIR 100 UNITS/ML VIAL SQ SCH (14:25)
[2018-02-14 16:15] LABS: BICARBONATE 21.2 MEQ/L (21.0-32.0); CREATININE 0.96 MG/DL (0.60-1.30); MAGNESIUM 1.9 MG/DL (1.5-2.5)
--- NOTE | 2018-02-14 16:33 | RADRPT ---
EXAM DATE/TIME: 02/14/2018 15:48 [facility] COMPARISON: No previous studies available for comparison. INDICATIONS : Syncope. MEDICAL HISTORY : Benign prostatic hyperplasia, (BPH) Glasses. Polyuria. Arthritis. Diabetes. SURGICAL HISTORY : Appendectomy. Right knee surgery. Cspine fusion. ENCOUNTER: Initial ACUITY: 1 day PAIN SCORE: 0/10 LOCATION: Bilateral neck PEAK SYSTOLIC VELOCITIES (cm/sec): ICA/CCA RATIO: Right: 1.2 Left: 0.9 ICA: Right: 119.9 Left: 100.0 CCA: Right: 98.3 Left: 106.4 ECA: Right: 123.9 Left: 114.0 VERTEBRAL: Right: 52.6 antegrade Left: 77.8 antegrade Elevated flow velocities and ICA/CCA ratios have been found to correlate with increased degrees of vessel stenosis, calculated as percentage of diameter relative to a normal segment of distal ICA/CCA FINDINGS: Mild heterogeneous plaque is identified in both carotid bifurcations. RIGHT CAROTID: No significant stenosis is visualized. The waveforms are within normal limits. LEFT CAROTID: No significant stenosis is visualized. The waveforms are within normal limits. VERTEBRAL ARTERIES: Antegrade flow is seen in both vertebral arteries. MISCELLANEOUS: None. CONCLUSION: 1. Mild bilateral atherosclerotic carotid plaque 2. No evidence of hemodynamically significant stenosis. 3. Antegrade flow both vertebral arteries. Sergey Rowe MD on February 14, 2018 at 16:30 Board Certified Radiologist. This report was verified electronically.
[2018-02-14] MEDS ORDERED: POTASSIUM PHOSPHATE MONOBASIC 500 MG TAB PO PRN (16:45)
[2018-02-14] MEDS ORDERED: POTASSIUM CHLOR 20 MEQ PREMIX 100 ML IV PRN ×2 (16:45)
[2018-02-14] MEDS ORDERED: SODIUM PHOSPHATE INJ 30 MMOL in SODIUM CHLOR 0.9% 250 ML INJ 240 ML IV PRN (16:45)
[2018-02-14] MEDS ORDERED: POTASSIUM CHLOR 40 MEQ PREMIX 100 ML IV PRN ×2 (16:45)
[2018-02-14] MEDS ORDERED: MAGNESIUM SULFATE INJ 4 GM in SODIUM CHLORIDE 0.9% INJ 92 ML IV PRN (16:45)
[2018-02-14] MEDS ORDERED: MAGNESIUM OXIDE 400 MG TAB PO PRN (16:45)
[2018-02-14] MEDS ORDERED: POTASSIUM PHOSPHATE MONOBASIC 500 MG TAB PO/TUBE PRN (16:45)
[2018-02-14] MEDS ORDERED: POTASSIUM CHLORIDE 25 MEQ EFFERVESCENT TAB PO PRN (16:45)
[2018-02-14] MEDS ORDERED: POTASSIUM PHOSPHATE INJ 30 MMOL in SODIUM CHLOR 0.9% 250 ML INJ 250 ML IV PRN (16:45)
[2018-02-14] MEDS ORDERED: MAGNESIUM SULFATE INJ 2 GM in SODIUM CHLORIDE 0.9% INJ 96 ML IV PRN (16:45)
[2018-02-14] MEDS: INSULIN ASPART SUPPLEMENTAL SCALE SQ SCH ×2 (16:50→23:10)
[2018-02-14] MEDS: INSULIN ASPART 1,000 UNITS/10 ML VIAL SQ SCH (17:00)
[2018-02-14] MEDS ORDERED: POTASSIUM CHLORIDE INJ 30 MEQ in SODIUM CHLOR 0.45% 1000 ML INJ 1,000 ML IV SCH (18:00)
--- NOTE | 2018-02-14 18:55 | RADRPT ---
EXAM DATE/TIME: 02/14/2018 18:27 [facility] COMPARISON: No previous studies available for comparison. INDICATIONS : Slurred speech. MEDICAL HISTORY : Diabetes mellitus type 2. SURGICAL HISTORY : Appendectomy. Fusion, cervical. Fusion, lumbar. Prostate. ENCOUNTER: Initial ACUITY: 1 day PAIN SCORE: 0/10 LOCATION: cranial TECHNIQUE: Multiplanar, multisequence MRI of the brain was performed without contrast. FINDINGS: There is no evidence for acute infarction on diffusion weighted images. There is mild line loss. Sign al intensity of the brain is normal. No hemorrhage or mass. No infarction. CONCLUSION: No acute disease. Mynor Sweeney MD on February 14, 2018 at 18:53 Board Certified Radiologist. This report was verified electronically.
[2018-02-14] MEDS: CHLORHEXIDINE GLUCONATE 2 % 1 PACK (2 CLOTHS) TOP SCH (23:13)
[2018-02-15] VITALS (19 sets, daily range): BP systolic 111–151; BP diastolic 58–69; PULSE 52–68; RESP 16–20; TEMP 97.7–98.7; O2SAT 95–97
[2018-02-15 05:12] LABS: HEMATOCRIT 27.3 % (39.0-51.0); HEMOGLOBIN 9.5 GM/DL (13.0-17.0); MEAN CELL VOLUME 86.6 FL (80.0-100.0); MEAN CORPUSCULAR HEMOGLOBIN 30.2 PG (27.0-34.0); MEAN CORPUSCULAR HGB CONC 34.9 % (32.0-36.0); MEAN PLATELET VOLUME 8.3 FL (7.0-11.0); PLATELET COUNT 173 TH/MM3 (150-450); RED BLOOD COUNT 3.15 MIL/MM3 (4.50-5.90); RED CELL DISTRIBUTION WIDTH 13.9 % (11.6-17.2); WHITE BLOOD COUNT 8.1 TH/MM3 (4.0-11.0)
[2018-02-15 05:37] LABS: BICARBONATE 23.5 MEQ/L (21.0-32.0); CALCIUM 8.3 MG/DL (8.5-10.1); CREATININE 0.78 MG/DL (0.60-1.30)
[2018-02-15] MEDS: SODIUM CHLOR 0.9% 1000 ML INJ 1,000 ML IV SCH ×2 (07:25→11:25)
[2018-02-15] MEDS: DEXT 5%-NACL 0.9% 1000 ML INJ 1,000 ML IV SCH ×2 (07:25→12:25)
[2018-02-15] MEDS: INSULIN ASPART 1,000 UNITS/10 ML VIAL SQ SCH ×3 (08:41→17:00)
[2018-02-15] MEDS: INSULIN DETEMIR 100 UNITS/ML VIAL SQ SCH ×2 (08:41→21:00)
[2018-02-15] MEDS: HEPARIN SODIUM - SQ 10,000 UNITS/ML VIAL SQ SCH ×2 (08:42→18:26)
[2018-02-15] MEDS: INSULIN ASPART SUPPLEMENTAL SCALE SQ SCH ×4 (08:42→22:26)
--- NOTE | 2018-02-15 13:39 | HHI.PR ---
Subjective Remarks Patient reports he is feeling much better. No issues with confusion or slurred speech. He states his throat was dried. MRI negative. Objective Vitals Vital Signs Date Time Temp Pulse Resp B/P (MAP) Pulse Ox O2 Delivery O2 Flow Rate FiO2 02/15/18 13:24 52 02/15/18 12:09 61 02/15/18 11:23 97.7 62 16 111/63 (79) 97 02/15/18 11:23 62 02/15/18 10:21 65 02/15/18 09:55 56 02/15/18 08:22 68 02/15/18 07:38 98.5 55 16 151/69 (96) 95 02/15/18 07:38 55 02/15/18 04:10 52 02/15/18 04:00 59 16 127/58 (81) 96 02/15/18 00:34 53 02/14/18 23:11 69 16 145/71 (95) 96 02/14/18 20:56 72 02/14/18 20:42 77 16 149/67 (94) 94 02/14/18 20:42 77 02/14/18 20:00 68 02/14/18 20:00 98.7 73 29 121/65 (83) 02/14/18 16:00 98.3 50 12 117/58 (77) 02/14/18 16:00 54 02/14/18 14:00 59 I/O 02/14/18 02/14/18 02/14/18 02/15/18 02/15/18 02/15/18 07:00 15:00 23:00 07:00 15:00 23:00 Intake Total 3000 ml 720 ml 240 ml Output Total 2500 ml 900 ml 551 ml Balance 500 ml -180 ml -311 ml Intake Oral 720 ml 240 ml IV Total 3000 ml Output Urine Total 2500 ml 900 ml 550 ml Stool Total 1 ml Result Diagram: 02/15/18 0500 02/15/18 0500 Objective Remarks GENERAL: This is a well-nourished, well-developed patient, in no apparent distress. CARDIOVASCULAR: Normal rate and regular rhythm without murmurs, gallops, or rubs. RESPIRATORY: Good respiratory efforts. Breath sounds equal and clear to auscultation bilaterally. GASTROINTESTINAL: Abdomen soft, non-tender, non-distended. Normal active bowel sounds MUSCULOSKELETAL: Extremities without cyanosis, or edema. NEURO: Alert & Oriented x4 to person, place, time, situation. Moves all ext x4 PSYCH: Appropriate mood and affect. A/P Assessment and Plan 72-year-old male with recent elective prostate surgery who his stopped taking his insulin and presents in severe diabetic ketoacidosis with life-threatening acidosis, pH less than 7, acute kidney injury, severe life-threatening hyperkalemia, pseudohyponatremia, total body potassium stores depletion. Patient is status post ICU course. He has improved significantly. Severe diabetic ketoacidosis Severe hyperglycemia Status post insulin drip. Transitioned to Levemir. Increase to 10 units twice daily, pre-meal NovoLog 3 units, sliding scale NovoLog Frequent Accu-Cheks Slightly altered mental status with slurred speech: Might be related to above MRI of the brain and carotid Doppler unremarkable. Frequent neurochecks Avoid long-acting sedatives Respiratory insufficiency Pulmonary toilet Wean oxygen for goal SPO2 greater than 90% Multiple electrolyte abnormalities: Status post aggressive repletion in the ICU. Electrolytes stable. Discontinue IV fluid Prophylaxis: GI Prophylaxis Pepcid DVT Prophylaxis -- SCDs Subcu heparin Discharge Planning Physical therapy to evaluate. Continue to titrate insulin Kaya Capone MD Feb 15, 2018 13:39
[2018-02-16] VITALS (10 sets, daily range): BP systolic 122–145; BP diastolic 65–76; PULSE 58–75; RESP 16–18; TEMP 97.7–98.9; O2SAT 97–98
[2018-02-16] MEDS: CHLORHEXIDINE GLUCONATE 2 % 1 PACK (2 CLOTHS) TOP SCH (04:00)
[2018-02-16] MEDS: HEPARIN SODIUM - SQ 10,000 UNITS/ML VIAL SQ SCH (05:00)
[2018-02-16 06:49] LABS: HEMATOCRIT 29.2 % (39.0-51.0); HEMOGLOBIN 10.2 GM/DL (13.0-17.0); MEAN CELL VOLUME 86.4 FL (80.0-100.0); MEAN CORPUSCULAR HEMOGLOBIN 30.3 PG (27.0-34.0); PLATELET COUNT 154 TH/MM3 (150-450); RED BLOOD COUNT 3.38 MIL/MM3 (4.50-5.90); RED CELL DISTRIBUTION WIDTH 13.9 % (11.6-17.2); WHITE BLOOD COUNT 6.2 TH/MM3 (4.0-11.0)
[2018-02-16 07:17] LABS: BICARBONATE 30.4 MEQ/L (21.0-32.0); CALCIUM 8.4 MG/DL (8.5-10.1); CREATININE 0.6 MG/DL (0.60-1.30)
[2018-02-16] MEDS: INSULIN ASPART SUPPLEMENTAL SCALE SQ SCH ×2 (08:00→11:49)
[2018-02-16] MEDS: INSULIN ASPART 1,000 UNITS/10 ML VIAL SQ SCH (08:00)
[2018-02-16] MEDS: INSULIN DETEMIR 100 UNITS/ML VIAL SQ SCH (09:00)
--- NOTE | 2018-02-16 11:46 | HHI.DCPOC ---
Discharge Care Plan Diagnosis: (1) Diabetic ketoacidosis (2) Acute encephalopathy (3) Electrolyte abnormality (4) MARTY (acute kidney injury) (5) Dehydration Goals to Promote Your Health * To prevent worsening of your condition and complications * To maintain your health at the optimal level Directions to Meet Your Goals Take your medications as prescribed Follow your dietary instruction Follow activity as directed Keep your appointments as scheduled Take your immunizations and boosters as scheduled If your symptoms worsen call your PCP, if no PCP go to Urgent Care Center or Emergency Room Smoking is Dangerous to Your Health. Avoid second hand smoke Call the 24-hour hour crisis hotline for domestic abuse at Kaya Capone MD Feb 16, 2018 11:46
--- NOTE | 2018-02-16 11:49 | HHI.DS ---
Discharge Summary Admission Date Feb 13, 2018 at 15:34 Admitting Diagnosis DKA, RENAL FAILURE, HYPERKALEMIA Brief History - From Admission This is a 72-year-old male with a history of insulin dependent diabetes who presented with 2 days of worsening nausea and vomiting. Patient states that last Thursday, 6 days prior to admission, the patient underwent elective prostate surgery at an outpatient surgery center. He said that he was feeling bad and had some nausea 2-3 days ago and he called the surgery center and the nurse at the surgery center told him to hold his insulin, which he did. Since then he has not been able to tolerate any liquids and has had worsening nausea and vomiting and fatigue. Denies chest pain, shortness of breath, fever, chills. Denies any other symptoms. ROS otherwise negative. In the emergency department he was found to be severely hyperglycemic with a glucose greater than 800. He had evidence of ketonuria as well as significant ketoacidosis and laboratory work. He has a pH of 6.9, a bicarb of 5.2, creatinine of 2.3, sodium 134. CBC/BMP: 02/16/18 0515 02/16/18 0515 Significant Findings Laboratory Tests Test 02/13/18 13:00 02/13/18 14:20 02/13/18 14:46 02/13/18 17:40 White Blood Count 14.7 TH/MM3 (4.0-11.0) Red Blood Count 3.84 MIL/MM3 (4.50-5.90) Hemoglobin 11.9 GM/DL (13.0-17.0) Hematocrit 38.5 % (39.0-51.0) Mean Corpuscular Volume 100.2 FL (80.0-100.0) Mean Corpuscular Hemoglobin Concent 31.0 % (32.0-36.0) Neutrophils (%) (Auto) 87.6 % (16.0-70.0) Lymphocytes (%) (Auto) 4.5 % (9.0-44.0) Neutrophils # (Auto) 12.9 TH/MM3 (1.8-7.7) Lymphocytes # (Auto) 0.7 TH/MM3 (1.0-4.8) Monocytes # (Auto) 1.1 TH/MM3 (0-0.9) Neutrophils % (Manual) 76 % (16-70) Band Neutrophils % 8 % (0-6) Lymphocytes % 5 % (9-44) Neutrophils # (Manual) 13.1 TH/MM3 (1.8-7.7) Metamyelocytes 5 % (0-1) Activated Partial Thromboplast Time 21.0 SEC (24.3-30.1) Blood Urea Nitrogen 45 MG/DL (7-18) Creatinine 2.30 MG/DL (0.60-1.30) Random Glucose 863 MG/DL (74-106) Albumin 3.3 GM/DL (3.4-5.0) Aspartate Amino Transf (AST/SGOT) 6 U/L (15-37) Sodium Level 134 MEQ/L (136-145) Potassium Level 7.0 MEQ/L (3.5-5.1) Carbon Dioxide Level 5.2 MEQ/L (21.0-32.0) Anion Gap 29 MEQ/L (5-15) Estimat Glomerular Filtration Rate 28 ML/MIN (>89) B-Type Natriuretic Peptide 159 PG/ML (0-100) B-Hydroxybutyrate 13.32 MMOL/L (0.00-0.39) Urine Turbidity HAZY (CLEAR) Urine Protein 30 mg/dL (NEG-TRACE) Urine Glucose (UA) 1000 mg/dL (NEG) Urine Ketones 80 mg/dL (NEG) Urine Occult Blood LARGE (NEG) Urine Leukocyte Esterase SMALL (NEG) Urine RBC 43 /hpf (0-3) Urine WBC 23 /hpf (0-5) Urine Bacteria RARE /hpf (NONE) Urine Mucus FEW /lpf (OCC) Blood Gas HCO3 3 mmol/L (22-26) 4 mmol/L (22-26) Blood Gas Base Excess -27.4 mmol/L (-2-2) -23.8 mmol/L (-2-2) Arterial Blood pH 6.91 (7.380-7.420) 7.10 (7.380-7.420) Arterial Blood Partial Pressure CO2 15 mmHg (38-42) 15 mmHg (38-42) Arterial Blood Partial Pressure O2 131 mmHG (61-120) 127 mmHg (61-120) Blood Gas Hemoglobin 11.6 G/DL (12.0-16.0) 10.5 G/DL (12.0-16.0) Test 02/13/18 20:25 02/14/18 02:32 02/14/18 11:47 02/14/18 14:40 Blood Urea Nitrogen 40 MG/DL (7-18) 27 MG/DL (7-18) 22 MG/DL (7-18) 20 MG/DL (7-18) Creatinine 1.79 MG/DL (0.60-1.30) 1.41 MG/DL (0.60-1.30) Random Glucose 532 MG/DL (74-106) 263 MG/DL (74-106) 200 MG/DL (74-106) 135 MG/DL (74-106) Calcium Level 7.8 MG/DL (8.5-10.1) 7.6 MG/DL (8.5-10.1) 8.0 MG/DL (8.5-10.1) 8.0 MG/DL (8.5-10.1) Phosphorus Level 1.3 MG/DL (2.5-4.9) 0.8 MG/DL (2.5-4.9) 1.0 MG/DL (2.5-4.9) 1.0 MG/DL (2.5-4.9) Chloride Level 113 MEQ/L (98-107) 122 MEQ/L (98-107) 123 MEQ/L (98-107) 122 MEQ/L (98-107) Carbon Dioxide Level 9.1 MEQ/L (21.0-32.0) 18.8 MEQ/L (21.0-32.0) 19.7 MEQ/L (21.0-32.0) Anion Gap 20 MEQ/L (5-15) Estimat Glomerular Filtration Rate 37 ML/MIN (>89) 49 ML/MIN (>89) 74 ML/MIN (>89) 77 ML/MIN (>89) Red Blood Count 2.98 MIL/MM3 (4.50-5.90) Hemoglobin 9.1 GM/DL (13.0-17.0) Hematocrit 25.8 % (39.0-51.0) Sodium Level 147 MEQ/L (136-145) 150 MEQ/L (136-145) 150 MEQ/L (136-145) B-Hydroxybutyrate 1.21 MMOL/L (0.00-0.39) 0.46 MMOL/L (0.00-0.39) Potassium Level 3.4 MEQ/L (3.5-5.1) 3.0 MEQ/L (3.5-5.1) Test 02/15/18 05:00 02/16/18 05:15 Red Blood Count 3.15 MIL/MM3 (4.50-5.90) 3.38 MIL/MM3 (4.50-5.90) Hemoglobin 9.5 GM/DL (13.0-17.0) 10.2 GM/DL (13.0-17.0) Hematocrit 27.3 % (39.0-51.0) 29.2 % (39.0-51.0) Random Glucose 191 MG/DL (74-106) 118 MG/DL (74-106) Calcium Level 8.3 MG/DL (8.5-10.1) 8.4 MG/DL (8.5-10.1) Sodium Level 147 MEQ/L (136-145) 146 MEQ/L (136-145) Chloride Level 117 MEQ/L (98-107) 109 MEQ/L (98-107) Potassium Level 3.1 MEQ/L (3.5-5.1) PE at Discharge GENERAL: This is a well-nourished, well-developed patient, in no apparent distress. CARDIOVASCULAR: Normal rate and regular rhythm without murmurs, gallops, or rubs. RESPIRATORY: Good respiratory efforts. Breath sounds equal and clear to auscultation bilaterally. GASTROINTESTINAL: Abdomen soft, non-tender, non-distended. Normal active bowel sounds MUSCULOSKELETAL: Extremities without cyanosis, or edema. NEURO: Alert & Oriented x4 to person, place, time, situation. Moves all ext x4 PSYCH: Appropriate mood and affect. Pt Condition on Discharge: Good Discharge Disposition: Disch w/ Home Health Serv Discharge Instructions DIET: Follow Instructions for: Diabetic Diet Activities you can perform: Regular-No Restrictions Kaya Capone MD Feb 16, 2018 11:49
--- NOTE | 2018-02-16 11:49 | HHI.FF ---
Face to Face Verification Diagnosis: (1) Debility (2) Diabetic ketoacidosis (3) Electrolyte abnormality (4) Acute encephalopathy (5) Dehydration (6) MARTY (acute kidney injury) Physical Therapy Order: Evaluate and Treat, Improve ambulation, Strength and gait training Home Health Nursing Order: Medical education Diabetic education Medication education-adverse effect Nursing assessment with vital signs I have seen patient Ty Nunes on 02/16/18. My clinical findings support the need for the requested home health care services because: Need for psychosocial assistance I certify that my clinical findings support that this patient is homebound because: Unsteady gait/balance Kaya Capone MD Feb 16, 2018 11:49
== END 2018-02-16 13:30 | disposition home health service (06) | DRG 637 ==
LOC: NEPE 12:36 → NEDA 15:34 → HIMN 17:20 → HCIS 02-14 20:45
PROVIDERS: ADMIT Family Medicine; ATTEND Family Medicine
DX: E11.10 Type 2 diabetes mellitus with ketoacidosis without coma (principal); G93.40 Encephalopathy, unspecified; N17.9 Acute kidney failure, unspecified; E44.0 Moderate protein-calorie malnutrition; Z68.1 Body mass index [BMI] 19.9 or less, adult; R06.03 Acute respiratory distress; E87.5 Hyperkalemia; E86.0 Dehydration; M19.90 Unspecified osteoarthritis, unspecified site; D72.829 Elevated white blood cell count, unspecified; R00.0 Tachycardia, unspecified; R47.81 Slurred speech; Z79.4 Long term (current) use of insulin
CPT/HCPCS: 36600; 70551; 71045; 80048; 80053; 81001; 82010; 82550; 82805; 82948; 83735; 83880; 84100; 84484; 85007; 85027; 85610; 85730; 87040; 87086; 87804; 93005; 93880; 94150; 94640; 94667; 94668; 96361; 96374; J1644; J1815; J1817; J3480; J7030; J7042